=== PATIENT | female | born 1990 ===

== ENCOUNTER → 2020-01-10 | Outpatient (CLI) | payer BC | LOC: ZCOL.LAB 16:12 | DX: Z20.828 Contact with and (suspected) exposure to other viral communicable diseases (principal) ==

== ENCOUNTER 2022-06-28 12:24 | Outpatient (CLI) | payer BC ==
[~2022-06-28] VITALS: Ht 165.1 cm; Wt 67.2 kg
[2022-06-28] VITALS (7 sets, daily range): BP systolic 101–107; BP diastolic 65–94; PULSE 56–89; TEMP 98.2
[2022-06-28] MEDS ORDERED: PROFERRIN ES12 MG PO (12:49)
[2022-06-28] MEDS ORDERED: MAGNESIUM250 M1 PO (12:50)
[2022-06-28] MEDS ORDERED: VITAMIN D31000 I1 PO (12:52)
[2022-06-28 13:11] LABS: HEMATOCRIT 38.9 % (37.0-47.0); HEMOGLOBIN 12.8 g/dl (12.5-16.0); MEAN CELL VOLUME 83 fl (80.0-100.0); MEAN CORPUSCULAR HEMOGLOBIN 27 pg (27-31); MEAN CORPUSCULAR HGB CONC 33 g/dl (33.0-37.0); MEAN PLATELET VOLUME 9.8 fl (7.4-10.4); PLATELET COUNT 268 K/mm3 (130-400); RED BLOOD COUNT 4.68 M/mm3 (4.10-5.30); REDCELL DISTRIBUTION WIDTH-CV 14.9 % (11.5-14.5)
[2022-06-28 13:19] LABS: INR 1.2 (0.8-3.0); PROTHROMBIN TIME 13.3 SECONDS (9.7-12.8)
[2022-06-28 13:24] LABS: CALCIUM 9.4 mg/dL (8.4-10.2); CREATININE, serum 0.79 mg/dL (0.57-1.11); POTASSIUM 3.5 mmol/L (3.5-4.5)
--- NOTE | 2022-06-28 17:18 | NUR ---
Pt was disconnected from monitor & VS, assisted to restroom and dressed at 1600. She and parents waited for Dr Corcoran to return to discuss LE[facility] results. DC instructions reviewed, all express understanding. Pt has tolerated PO fluids without issue. Has denied desire for food to this point. She is steady on feet. IV site was wrapped with coban. She is assisted out to parent's car by wheelchair with belongings.
== END 2022-06-28 17:18 | disposition home or self-care (01) ==
LOC: COL.RAD 12:24
PROVIDERS: Internal Medicine Cardiovascular Disease
DX: I25.3 Aneurysm of heart (principal); Q21.12 Patent foramen ovale
CPT/HCPCS: J2704

== ENCOUNTER → 2023-02-07 | Outpatient (CLI) | payer BC ==
[~2023-02-07] MED LIST: MAGNESIUM250 M1 PO; PROFERRIN ES12 MG PO; VITAMIN D31000 I1 PO
== END ==
LOC: COL.RAD 07:10
DX: G44.329 Chronic post-traumatic headache, not intractable (principal)